=== PATIENT | female | born 1965 | race Caucasian/White ===

== ENCOUNTER 2020-04-15 12:37 | Outpatient (CLI) | payer OTHER, SELFPAY ==
--- NOTE | ~2020-04-15 | XR_ITS ---
EXAMINATION: XR lumbar spine 6V w bending DATE: 04/15/2020 13:13 INDICATION: Low back pain TECHNIQUE: Anteroposterior, lateral in neutral, flexion and extension, and bilateral oblique views of the lumbar spine, and cone-down lateral view of the lumbosacral junction were obtained. COMPARISON: CT, 05/14/2015 FINDINGS: The vertebral body heights and alignment are maintained. No laxity is present with flexion or extension. There is no fracture. Chronic mild loss of intervertebral disc space height is present at L5-S1. Small degenerative osteophytes project from the anterior endplates of multiple vertebral mauro dies. There is moderate facet osteoarthritis of the lower lumbar spine. Calcified atherosclerosis is noted. There are cholecystectomy clips in the right upper quadrant. IMPRESSION: 1. Mild lumbar spondylosis without acute findings or significant interval change. Reviewed, dictated and finalized at location A. IMPRESSION: 1. Mild lumbar spondylosis without acute findings or significant interval jose manuel serrano
--- NOTE | ~2020-04-15 | XR_ITS ---
EXAMINATION: XR sacrum coccyx min 2V INDICATION: Sacrococcygeal pain TECHNIQUE: Three views of the sacrum and coccyx are obtained. COMPARISON: None available FINDINGS: Bone alignment is normal. There is no fracture. Mild lower lumbar spondylosis is noted. The re is calcified atherosclerosis. The bowel gas pattern is normal. IMPRESSION: 1. No acute osseous abnormality. Reviewed, dictated and finalized at location A.
--- NOTE | ~2020-04-15 | XR_ITS ---
EXAMINATION: XR foot LT min 3V DATE: 04/15/2020 13:13 INDICATION: Left foot pain TECHNIQUE: Dorsoplantar, lateral, and 2 oblique views of the left foot were obtained. COMPARISON: None. FINDINGS: There is no fracture, dislocation, or subluxation. The bones, soft tissues, and joint space s are normal. IMPRESSION: 1. No acute osseous abnormality. Reviewed, dictated and finalized at location A.
== END 2020-04-15 12:38 | disposition home or self-care (01) ==
LOC: ANHIMG 12:47
PROVIDERS: PCP Family Medicine; Visit Provider Family Medicine
DX: M53.3 Sacrococcygeal disorders, not elsewhere classified (principal); M79.672 Pain in left foot; M47.816 Spondylosis without myelopathy or radiculopathy, lumbar region
CPT/HCPCS: 72114; 72220; 73630

== ENCOUNTER 2020-09-12 09:57 | Outpatient (CLI) | payer OTHER, SELFPAY | END 2020-09-12 09:58 | disposition home or self-care (01) | LOC: ANHCOVIDVC 09:57 | PROVIDERS: PCP Family Medicine | DX: Z23 Encounter for immunization (principal) | CPT/HCPCS: 0001A; 91300 ==

== ENCOUNTER 2020-10-03 10:01 | Outpatient (CLI) | payer OTHER, SELFPAY | END 2020-10-03 10:02 | disposition home or self-care (01) | LOC: ANHCOVIDVC 10:01 | PROVIDERS: PCP Family Medicine | DX: Z23 Encounter for immunization (principal) | CPT/HCPCS: 0002A; 91300 ==

== ENCOUNTER 2020-12-10 10:28 | Outpatient (CLI) | payer OTHER, SELFPAY ==
--- NOTE | ~2020-12-10 | XR_ITS ---
EXAMINATION: XR chest 2V 12/10/2020 10:45 INDICATION: Bronchitis PROCEDURE: 2 view chest COMPARISON: Comparison to multiple prior studies sequentially, with oldest reviewed study dated 01/14. FINDINGS: The lungs are clear. The cardiomediastinal silhouette is within normal limits. There are no pleural effusions. There is no pneumothorax suspected. IMPRESSION: 1: NO ACUTE CARDIOPULMONARY DISEASE. Reviewed, dictated and finalized at location B.
== END 2020-12-10 10:29 | disposition home or self-care (01) ==
PROVIDERS: PCP Family Medicine; Visit Provider Nurse Practitioner Family
DX: J40 Bronchitis, not specified as acute or chronic (principal); R05 Cough
CPT/HCPCS: 71046

== ENCOUNTER → 2021-07-08 02:42 | Outpatient (CLI) | payer OTHER, SELFPAY ==
[2021-07-08 20:49] LABS: SARS-CoV-2 RNA PCR Negative
== END ==
PROVIDERS: PCP Family Medicine; Visit Provider Nurse Practitioner Family
DX: R05.9 Cough, unspecified (principal); Z20.822 Contact with and (suspected) exposure to COVID-19
CPT/HCPCS: C9803; U0003; U0005

== ENCOUNTER 2021-08-08 17:59 | Emergency (ER) | payer OTHER, SELFPAY ==
--- NOTE | 2021-08-08 18:05 | ED.URI ---
HPI - URI/Sore Throat General Chief Complaint: Upper Respiratory Infection Stated Complaint: Swollen glands Time Seen by Provider: 08/08/21 18:08 Source: patient, RN notes reviewed and old records reviewed Mode of arrival: ambulatory Limitations: no limitations History of Present Illness HPI Narrative: 55-year-old male presents to the [facility] with complaints of swollen gland to the left side of neck, cough, left ear pain. Related Data Allergies Allergy/AdvReac Type Severity Reaction Status Date / Time diphenhydramine Allergy Unknown Unknown Verified 08/08/21 18:01 hydromorphone AdvReac Unknown N/V Verified 08/08/21 18:01 meperidine AdvReac Unknown SEVERE VO Verified 08/08/21 18:01 Review of Systems Review of Systems: All systems reviewed & are unremarkable except as noted in HPI and below Constitutional: Constitutional: Reports no additional constitutional complaints, Denies chills, Denies fever(s) and Denies headache(s) Eyes: Eyes: Reports no additional eye complaints and Denies photophobia ENT: Reports as per HPI, Denies vertigo, Denies dizziness, Denies headache(s), Reports nasal congestion and Denies sore throat Cardiovascular: Cardiovascular: Reports no additional cardiovascular complaints, Denies chest pain, Denies syncope, Denies rapid heart rate and Denies dyspnea Respiratory: Respiratory: Reports as per HPI, Reports cough, Denies dyspnea and Denies wheezing Gastrointestinal: Gastrointestinal: Reports no additional gastrointestinal complaints, Denies abdominal pain, Denies diarrhea, Denies nausea and Denies vomiting Musculoskeletal: Musculoskeletal: Reports no additional musculoskeletal complaints and Denies numbness Integumentary/Breasts: Skin/Breast: Reports system reviewed and no additional complaints, except as docu Neurologic: Reports system reviewed and no additional complaints, except as documented, Denies vertigo, Denies dizziness, Denies syncope, Denies headache(s), Denies focal weakness and Denies numbness Psychiatric: Psychiatric: Reports no additional psychiatric complaints Allergic/Immunologic: Allergic/Immunologic: Reports no additional allergic/immunologic complaints and Denies wheezing PMFSH Past Medical History Medical History Anxiety BMI 34.0-34.9,adult BMI 34.0-34.9,adult Coccygeal pain Foot pain, left Mixed hyperlipidemia Thumb pain Tobacco abuse Trigger finger (acquired) Family History Family History Grandparent Family history of malignant neoplasm of bone Family history of malignant neoplasm of urinary bladder Mother Hypertension Osteoporosis Hyperlipidemia Father , CVA Cerebrovascular accident Other Family history of alcoholism Family history of arthritis Family history of malignant neoplasm Family history of mental disorder Social History Social History Alcohol intake: never Comments At the time of my signature, I reviewed and agree with the nursing past medical, surgical, social, and family history. There is no relevant family history pertinent to the patient complaint. Exam Const: General: cooperative, healthy appearing, no acute distress, well developed and alert Nutritional Appearance: well nourished and obese Orientation/consciousness: patient oriented x3 Limitations: no limitations HENMT: Head: normal to inspection Ears: external ears normal, EAC's normal and TM abnormal with fluid behind the TM on the left; not erythematous, with no loss of landmarks and not perforated General nose exam: Abnormal mucous membranes and turbinates present boggy bilateral and erythematous bilateral Face and sinus: normal facial exam, face symmetric and sinus tenderness frontal and maxillary Mouth: Yes lip normal Eyes: Conjunctivae: conjunctivae normal Pupils: Equal, round and reactive pupils present Neck: Nec
[2021-08-08 18:09] VITALS: BP 152/78; PULSE 102; RESP 18; TEMP 37.3; O2SAT 100
== END 2021-08-08 18:28 | disposition home or self-care (01) ==
PROVIDERS: Emergency Provider Nurse Practitioner; PCP Family Medicine
DX: J01.90 Acute sinusitis, unspecified (principal); J40 Bronchitis, not specified as acute or chronic; H65.02 Acute serous otitis media, left ear; E78.2 Mixed hyperlipidemia
CPT/HCPCS: 99213; G0463

== ENCOUNTER → 2022-02-10 14:55 | Outpatient (CLI) | payer OTHER, SELFPAY ==
--- NOTE | ~2022-02-10 | XR_ITS ---
EXAM: XR hip BI wo pelvis DATE: 02/10/2022 15:12 HISTORY: M25.559 - Pain in unspecified hip . COMPARISON: X-ray sacrum and coccyx 04/15/2020. FINDINGS: Decreased mineralization. No fracture or dislocation. No lytic or blastic lesion. Degenera tive changes in the bilateral SI joints. Superior joint space narrowing in the bilateral hips. No ero sarath or periosteal change. Soft tissues within normal limits. Surgical clips over the midline pelvis. IMPRESSION: Mild bilateral hip osteoarthritis. Reviewed, dictated and finalized at location K.
--- NOTE | ~2022-02-10 | XR_ITS ---
EXAMINATION: XR chest 2V 02/10/2022 15:12 INDICATION: Cough PROCEDURE: 2 view chest COMPARISON: Comparison to multiple prior studies sequentially, with oldest reviewed study dated 10/2015. FINDINGS: The lungs are clear. The cardiomediastinal silhouette is within normal limits. There are no pleural effusions. There is no pneumothorax suspected. IMPRESSION: 1: NO ACUTE CARDIOPULMONARY DISEASE. Reviewed, dictated and finalized at location A.
--- NOTE | ~2022-02-10 | DEXA_ITS ---
Bone Density Report Name: PAIGE PERLA Age: 56 Sex: Female Ethnicity: White Date of : 1965 Indication: postmenopausal; screening for osteoporosis; height loss; Referring Provider: Yoli Johns Study: Bone densitometry was performed. Exam Date: February 10, 2022 Accession number: [id number] Bone Density: Region BMD T-score Z-score Classification AP Spine (L1-L4) 0.917 -1.2 0.1 Osteopenia Femoral Neck (Left) 0.825 -0.2 1.0 Normal Total Hip (Left) 1.167 1.8 2.7 Normal Femoral Neck (Right) 0.927 0.7 1.9 Normal Total Hip (Right) 1.110 1.4 2.2 Normal Total Hip Mean 1.139 1.6 2.5 Normal World Health Organization criteria for BMD impression classify patients as: Normal (T-score at or above -1.0), Osteopenia (T-score between -1.0 and -2.5), or Osteoporosis (T-score at or below -2.5). 10-year Fracture Risk(1): Major Osteoporotic Fracture 5.4% Hip Fracture 0.2% Reported Risk Factors: [place] (), Neck BMD=0.825, BMI=35.9, smoking (1) FRAX(R) Version 3.08. Fracture probability calculated for an untreated patient. Fracture probability may be lower if the patient has received treatment. Previous Exams: Region Exam Age BMD T-score BMD Change BMD Change Date g/cm2 vs Baseline vs Previous AP Spine(L1-L4) 02/10/2022 56 0.917 -1.2 0.036 -0.027 06/09/2018 52 0.945 -0.9 0.063 -0.052 12/02/2015 50 0.997 -0.5 0.115 0.115 11/28/2013 48 0.882 -1.5 Total Hip(Left) 02/10/2022 56 1.167 1.8 -0.138* -0.021 06/09/2018 52 1.189 2.0 -0.117 -0.043 12/02/2015 50 1.231 2.4 -0.074* -0.074* 11/28/2013 48 1.305 3.0 Total Hip(Right) 02/10/2022 56 1.110 1.4 -0.055* -0.092 06/09/2018 52 1.202 2.1 0.037 0.000 12/02/2015 50 1.202 2.1 0.037* 0.037* 11/28/2013 48 1.165 1.8 *Denotes significance at 95% confidence level, LSC for AP Spine = 0.022 g/cm2, LSC for Total Hip = 0.027 g/cm2 Clinical Information Provided by Patient: Smokes Has used the following medications: Vitamin D, Calcium Patient maximum height was 64 Menopause Age: 45 No regular weight bearing exercise Drinks caffeinated beverages Onset of menses at age 9 Number of children 1 Impression: The patient has low bone mass, based on the Total Spine T
--- NOTE | ~2022-02-10 | MM_ITS ---
EXAMINATION: MM screening [facility] BI w dorie HISTORY: Screening mammogram TECHNIQUE: Craniocaudal and mediolateral oblique 3-D tomosynthesis images were obtained and synthetic 2-D images were generated. CAD analysis was submitted and interpreted. COMPARISON: 06/09/2019, 10/22/2015 BREAST PARENCHYMAL COMPOSITION: There are scattered areas of fibroglandular density. FINDINGS: There is no suspicious mass, calcification, or architectural distortion to suggest malignan cy in either breast. There has been no suspicious interval change. IMPRESSION: 1. No mammographic evidence of malignancy. 2. Recommend routine screening mammography in one year. BI-RADS Category 1: Negative Reviewed, dictated and finalized at location A.
== END ==
PROVIDERS: PCP Family Medicine; Visit Provider Nurse Practitioner Family
DX: M81.0 Age-related osteoporosis without current pathological fracture (principal); Z72.0 Tobacco use; Z68.35 Body mass index [BMI] 35.0-35.9, adult; R79.89 Other specified abnormal findings of blood chemistry; E78.5 Hyperlipidemia, unspecified; E11.9 Type 2 diabetes mellitus without complications; M25.559 Pain in unspecified hip; Z12.39 Encounter for other screening for malignant neoplasm of breast; R05.9 Cough, unspecified; M16.0 Bilateral primary osteoarthritis of hip; M85.88 Other specified disorders of bone density and structure, other site
CPT/HCPCS: 71046; 73521; 77063; 77067; 77080

== ENCOUNTER 2023-06-01 12:58 | Outpatient (CLI) | payer OTHER, SELFPAY ==
--- NOTE | ~2023-06-01 | CT_ITS ---
EXAMINATION: CT lung screening DATE: 06/01/2023 13:19 INDICATION: Personal history of nicotine dependence TECHNIQUE: Computed tomography (CT) of the chest was performed without intravenous contrast. The dose -length product was 207.29 mGy-cm. Automated exposure control and iterative reconstruction technique were employed. COMPARISON: Chest x-ray dated 02/10/2022 FINDINGS: No thoracic lymphadenopathy. Heart size normal. No significant pleural or pericardial effus ion. Status post cholecystectomy. There is atherosclerosis of the aorta and coronary arteries. There is emphysema. No endobronchial lesions. No focal airspace consolidation. No pneumothorax. No suspicio us pulmonary nodules or masses. No acute osseous abnormality. IMPRESSION: 1. Lung-RADS category 1: Negative. Continue annual screening with noncontrast low-dose chest CT in 12 months. Reviewed, dictated and finalized at location B. 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 Lung-RADS category 1: Negative. Continue annual screening with noncontrast l ow-dose chest CT in 12 months.
== END 2023-06-01 12:59 | disposition home or self-care (01) ==
PROVIDERS: PCP Family Medicine; Visit Provider Nurse Practitioner Family
DX: Z12.2 Encounter for screening for malignant neoplasm of respiratory organs (principal); Z87.891 Personal history of nicotine dependence
CPT/HCPCS: 71271

== ENCOUNTER 2023-06-30 16:03 | Emergency (ER) | payer OTHER, SELFPAY ==
[2023-06-30 16:23] VITALS: BP 135/73; PULSE 79; RESP 20; TEMP 36.9; O2SAT 96
--- NOTE | 2023-06-30 17:53 | ED.URI ---
HPI - URI/Sore Throat General Chief Complaint: Upper Respiratory Infection Stated Complaint: Sinus/SOB Time Seen by Provider: 06/30/23 17:54 Source: patient, RN notes reviewed and old records reviewed Mode of arrival: ambulatory Limitations: no limitations History of Present Illness HPI Narrative: 57-year-old female presents to the [facility] with complaints of cough and shortness of breath since either Tuesday or Tuesday. Patient is a smoker, smokes 1 pack a day since age 13 Chest chest pain Onset (ago): day(s) (-) Related Data Home Medications Medication Instructions Recorded Confirmed ascorbic acid (vitamin C) 1,000 mg 1 g PO BID 03/18/22 06/30/23 capsule Allergies Allergy/AdvReac Type Severity Reaction Status Date / Time No Known Allergies Allergy Verified 06/30/23 16:33 Review of Systems Review of Systems: All systems reviewed & are unremarkable except as noted in HPI and below Constitutional: Constitutional: Reports no additional constitutional complaints Eyes: Eyes: Reports no additional eye complaints ENT: Reports system reviewed and no additional complaints, except as documented Cardiovascular: Cardiovascular: Reports no additional cardiovascular complaints, Denies chest pain and Denies dyspnea Respiratory: Respiratory: Reports as per HPI, Denies chest congestion, Denies cough, Reports dyspnea and Reports wheezing Gastrointestinal: Gastrointestinal: Reports no additional gastrointestinal complaints, Denies abdominal pain, Denies nausea and Denies vomiting Musculoskeletal: Musculoskeletal: Reports no additional musculoskeletal complaints Integumentary/Breasts: Skin/Breast: Reports system reviewed and no additional complaints, except as docu Neurologic: Reports system reviewed and no additional complaints, except as documented Psychiatric: Psychiatric: Reports no additional psychiatric complaints Allergic/Immunologic: Allergic/Immunologic: Reports no additional allergic/immunologic complaints [facility] Past Medical History Medical History Anxiety Arthritis BMI 34.0-34.9,adult BMI 34.0-34.9,adult BMI 36.0-36.9,adult BMI 37.0-37.9, adult BMI over 35 Coccygeal pain COVID Epidermoid cyst of skin of chest Foot pain, left IBS (irritable bowel syndrome) Mixed hyperlipidemia Skin lesion of right leg Thumb pain Tobacco abuse Trigger finger (acquired) Surgical History Surgical History History of cholecystectomy History of elective x2 Hx of elbow surgery Hx of release of tendon S/P left knee surgery [place] teeth removed Family History Family History Grandparent Family history of malignant neoplasm of bone Family history of malignant neoplasm of urinary bladder Mother Hypertension Osteoporosis Hyperlipidemia Father , CVA Cerebrovascular accident Lung cancer Sibling Hyperlipidemia Other Family history of alcoholism Family history of arthritis Family history of malignant neoplasm Family history of mental disorder Social History Social History Smoking status: Current every day smoker Tobacco type: cigarettes Second hand tobacco smoke exposure: Yes Alcohol intake: never Substance use: former Substance use type: marijuana Lack of Transportation: No Lack of Food: Never True Current Housing: I Have Housing Concerned About Future Housing: No Difficulty Paying Gas/Electric Bills: YES Difficulty Paying for Meds: YES Currently Unemployed: YES Education: Bachelor's Degree Difficulty w/ Childcare or Family Care: No Living arrangements: with family Occupation/Education: unemployed 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 Gender identity (if verbalized by th
== END 2023-06-30 18:13 | disposition home or self-care (01) ==
PROVIDERS: Emergency Provider Nurse Practitioner; PCP Family Medicine
DX: J20.9 Acute bronchitis, unspecified (principal); E78.2 Mixed hyperlipidemia; F17.210 Nicotine dependence, cigarettes, uncomplicated; Z20.822 Contact with and (suspected) exposure to COVID-19
CPT/HCPCS: 87426; 87804; 99213; C9803; G0463

== ENCOUNTER 2023-08-03 10:04 | Outpatient (CLI) | payer OTHER, SELFPAY ==
--- NOTE | ~2023-08-03 | MM_ITS ---
EXAMINATION: MM screening [facility] BI w dorie HISTORY: Screening TECHNIQUE: Craniocaudal and mediolateral oblique 3-D tomosynthesis images were obtained and synthetic 2-D images were generated. CAD analysis was submitted and interpreted. COMPARISON: No prior mammogram is available for comparison at this institution. BREAST PARENCHYMAL COMPOSITION: Breast composed of scattered areas of fibroglandular density FINDINGS: There is a mass in the right axilla which has an atypical appearance for lymph node. No [facility] mographic evidence for malignancy in the left breast. IMPRESSION: 1. Abnormal right axillary mass. 2. Additional spot compression and mediolateral views with possible follow-up breast ultrasound recom mended. BI-RADS Category 0: Incomplete: Needs additional imaging evaluation. Reviewed, dictated and finalized at location A. 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 Abnormal right axillary mass. 2. Additional spot compression and mediolateral views with possible follow-up b reast ultrasound recommended. BI-RADS Category 0: Incomplete: Needs additional imaging evaluation.
== END 2023-08-03 10:05 | disposition home or self-care (01) ==
LOC: ANHIMG 10:09
PROVIDERS: PCP Family Medicine; Visit Provider Obstetrics & Gynecology
DX: Z12.31 Encounter for screening mammogram for malignant neoplasm of breast (principal); R92.8 Other abnormal and inconclusive findings on diagnostic imaging of breast
CPT/HCPCS: 77063; 77067

== ENCOUNTER 2023-08-30 11:20 | Outpatient (CLI) | payer OTHER, SELFPAY ==
--- NOTE | ~2023-08-30 | MMUS_ITS ---
EXAMINATION: MM diagnostic [facility] RT w dorie, US breast RT limited HISTORY: Follow-up right axillary mass TECHNIQUE: Additional 3-D tomosynthesis images of the right breast were performed and synthetic 2-D i mages were generated. CAD analysis was submitted and interpreted. High resolution Limited right breas t ultrasound was performed. COMPARISON: Comparison to multiple prior studies sequentially, with oldest reviewed study dated 10/18. BREAST PARENCHYMAL COMPOSITION: Not dense: There are scattered areas of fibroglandular density. FINDINGS: MAMMOGRAPHIC FINDINGS: The mass in the right axilla overlies the pectoralis muscle on the medial lateral view. There is cent ral lucency with spot compression views, compatible with lymph node. There are no suspicious masses, calcifications or architectural distortion. ULTRASOUND: Limited right breast ultrasound: At 9:00, 5 cm from the nipple, there is an oval hypoechoic mass with echogenic focus internally. No internal vascularity. There is parallel orientation and no posterior features. This mass measures 5 mm. At 12:00 near the nipple is an oval solid hypoechoic 7 mm mass wit h circumscribed margins, no internal vascularity and no posterior features, likely benign. At 11:00, 12 cm from the nipple there is a normal-appearing 12 mm lymph node. Additional normal lymph nodes are present in the right axilla. IMPRESSION: 1. Likely benign right breast masses located at 9:00 5 cm from the nipple and 12:00 near the nipple. 2. Recommend 6 month follow-up Limited right breast ultrasound BI-RADS category 3, probably benign findings. Reviewed, dictated and finalized at location A. 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 Likely benign right breast masses located at 9:00 5 cm from the nipple and 1 2:00 near the nipple. 2. Recommend 6 month follow-up Limited right breast ultrasound BI-RADS category 3, probably benign findings.
== END 2023-08-30 11:21 | disposition home or self-care (01) ==
PROVIDERS: PCP Family Medicine; Visit Provider Obstetrics & Gynecology
DX: R92.8 Other abnormal and inconclusive findings on diagnostic imaging of breast (principal)
CPT/HCPCS: 76642; 77061; 77065; G0279

== ENCOUNTER 2024-03-23 09:11 | Emergency (ER) | payer OTHER, SELFPAY ==
[2024-03-23 09:21] VITALS: BP 138/78; PULSE 92; RESP 16; TEMP 37.6; O2SAT 97
[2024-03-23 09:24] VITALS: BP 138/78; PULSE 92; RESP 16; TEMP 37.6; O2SAT 97
--- NOTE | 2024-03-23 09:31 | ED.URI ---
HPI - URI/Sore Throat General Chief Complaint: Upper Respiratory Infection Stated Complaint: Sinus/Cough Time Seen by Provider: 03/23/24 09:31 Source: patient Mode of arrival: ambulatory Limitations: no limitations History of Present Illness HPI Narrative: 58-year-old female presents with complaint cough, chest congestion, fatigue for 1 week. Reports low-grade fever yesterday and today. History of asthma. Has been using inhaler more than usual. Also current everyday smoker. Taking sveu-[id number] Mucinex to treat symptoms. All systems reviewed and negative except as noted above. Related Data Home Medications Medication Instructions Recorded Confirmed ascorbic acid (vitamin C) 1,000 mg 1 g PO BID 03/18/22 03/23/24 capsule Allergies Allergy/AdvReac Type Severity Reaction Status Date / Time No Known Allergies Allergy Verified 03/23/24 09:22 Review of Systems Review of Systems: CONSTITUTIONAL: Reports fever. Denies chills, or sweats. EYES: Denies visual changes, redness, or discharge. ENT: reports rhinorrhea, congestion. Denies sore throat, or otalgia. CARDIOVASCULAR: Denies chest pain, palpitations, or edema. RESPIRATORY: reports cough. Denies dyspnea. GASTROINTESTINAL: Denies abdominal pain, nausea, vomiting, or diarrhea. GENITOURINARY: Denies dysuria or hematuria. SKIN: Denies rash or itching. MUSCULOSKELETAL: Denies back pain, joint pain, or myalgia. NEUROLOGIC: Denies headache, numbness, or weakness. PSYCHIATRIC: Denies anxiety or depression. All other systems reviewed are negative, except as documented in HPI. [facility] Past Medical History Medical History (Updated 03/23/24 @ 09:39 by Yoli Little NP) Anxiety Arthritis BMI 32.0-32.9,adult BMI 34.0-34.9,adult BMI 34.0-34.9,adult BMI 36.0-36.9,adult BMI 37.0-37.9, adult BMI over 35 Coccygeal pain COVID Epidermoid cyst of skin of chest Foot pain, left IBS (irritable bowel syndrome) Mixed hyperlipidemia Skin lesion of right leg Thumb pain Tobacco abuse Trigger finger (acquired) Surgical History Surgical History History of cholecystectomy History of elective x2 Hx of elbow surgery Hx of release of tendon S/P left knee surgery [place] teeth removed Family History Family History Grandparent Family history of malignant neoplasm of bone Family history of malignant neoplasm of urinary bladder Mother Hypertension Osteoporosis Hyperlipidemia Father , CVA Cerebrovascular accident Lung cancer Sibling Hyperlipidemia Depression Other Family history of alcoholism Family history of arthritis Family history of malignant neoplasm Family history of mental disorder Social History Social History Smoking status: Current every day smoker Tobacco type: cigarettes Second hand tobacco smoke exposure: Yes Alcohol intake: never Substance use: former Substance use type: does not use and marijuana Do You Feel Safe in your Home?: Yes Lack of Transportation: No Lack of Food: Never True Current Housing: I Have Housing Concerned About Future Housing: No Difficulty Paying Gas/Electric Bills: YES Difficulty Paying for Meds: YES Currently Unemployed: YES Education: Bachelor's Degree Difficulty w/ Childcare or Family Care: No Living arrangements: with family Occupation/Education: unemployed 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 There is no relevant family history pertinent to the presenting complaint. Exam Narrative: GE
== END 2024-03-23 09:48 | disposition home or self-care (01) ==
PROVIDERS: Emergency Provider Nurse Practitioner Family; PCP Family Medicine
DX: J20.9 Acute bronchitis, unspecified (principal); J45.901 Unspecified asthma with (acute) exacerbation; F17.210 Nicotine dependence, cigarettes, uncomplicated; M19.90 Unspecified osteoarthritis, unspecified site; E78.2 Mixed hyperlipidemia; Z86.16 Personal history of COVID-19
CPT/HCPCS: 99213; G0463

== ENCOUNTER 2024-04-03 11:21 | Outpatient (CLI) | payer OTHER, SELFPAY ==
--- NOTE | ~2024-04-03 | XR_ITS ---
Clinical Indication: Bronchitis PA and lateral views of the chest: Comparison: 02/10/2022 Findings: Questionable minimal haziness in the lingula. Right lung clear. Cardiomediastinal silhouet te is within normal limits. Bones and soft tissues are unremarkable. Impression: Questionable subtle/patchy lingular pneumonia. Reviewed, dictated and finalized at [facility]. Impression: Questionable subtle/patchy lingular pneumonia.
== END 2024-04-03 11:22 | disposition home or self-care (01) ==
LOC: ANHIMG 11:24
PROVIDERS: PCP Family Medicine; Visit Provider Nurse Practitioner Family
DX: J20.9 Acute bronchitis, unspecified (principal)
CPT/HCPCS: 71046

== ENCOUNTER 2024-05-23 11:08 | Outpatient (CLI) | payer OTHER, SELFPAY ==
--- NOTE | ~2024-05-23 | MMUS_ITS ---
EXAMINATION: MM diagnostic [facility] RT w dorie, US breast RT limited HISTORY: Six-month follow-up of right breast TECHNIQUE: 3-D tomosynthesis images of the right breast were performed and synthetic 2-D images were generated. CAD analysis was submitted and interpreted. High resolution limited right breast ultrasoun d was performed. COMPARISON: 08/30/2023, 08/03/2023, 02/10/2022 BREAST PARENCHYMAL COMPOSITION:Not Dense. There are scattered areas of fibroglandular density. FINDINGS: MAMMOGRAPHIC FINDINGS: Parenchymal pattern of the right breast is unchanged. No suspicious mass lesion or distortion. Stable lymph node at the axillary tail of the right breast. ULTRASOUND: Stable 5 mm hypoechoic mass at the 9:00 position right breast, 5 cm from the nipple. Stable benign ly mph node at the 11:00 position right breast, 12 cm from the nipple. Stable 7 mm hypoechoic parallel c ircumscribed homogeneous mass at the 12:00 position right breast, near the nipple. IMPRESSION: No evidence for malignancy. Stable subcentimeter benign-appearing right breast masses, as above. Stable benign-appearing right ax illary lymph node. BI-RADS Category 2: Benign finding(s). Reviewed, dictated and finalized at location M. P IMPRESSION: No evidence for malignancy. Stable subcentimeter benign-appearing right breast masses, as above. Stable kaleigh ign-appearing right axillary lymph node. BI-RADS Category 2: Benign finding(s).
== END 2024-05-23 11:09 | disposition home or self-care (01) ==
LOC: ANHIMG 11:09
PROVIDERS: PCP Family Medicine; Visit Provider Obstetrics & Gynecology
DX: R92.8 Other abnormal and inconclusive findings on diagnostic imaging of breast (principal)
CPT/HCPCS: 76642; 77061; 77065; G0279

== ENCOUNTER 2024-05-25 23:16 | Emergency (ER) | payer OTHER, SELFPAY ==
[2024-05-25 23:30] VITALS: BP 131/65; PULSE 77; RESP 18; TEMP 36.4; O2SAT 99
[2024-05-26 02:47] LABS: Basophils Absolute Auto 0.1 K/mm3 (0.0-0.1); Basophils Percent Auto 0.4 % (0.2-1.2); Eosinophils Absolute Auto 0.2 K/mm3 (0-0.3); Eosinophils Percent Auto 1.6 % (0-4.4); Hematocrit 44.5 % (37.0-47.0); Hemoglobin 14.9 g/dL (12.0-15.0); Immature Granulocyte Absolute 0.06 K/mm3 (0.00-0.031); Immature Granulocyte Percent A 0.4 % (0-0.5); Lymphocytes Absolute Auto 4.04 K/mm3 (0.9-3.2); Lymphocytes Percent Auto 27.5 % (18.3-44.2); Mean Corpuscular HGB Conc 33.5 g/dl (32-36); Mean Corpuscular Hemoglobin 29.5 pg (26-34); Mean Corpuscular Volume 88.1 fl (80-100); Mean Platelet Volume 10.2 fl (7.4-10.4); Monocytes Absolute Auto 1.3 K/mm3 (0.1-0.6); Monocytes Percent Auto 8.6 % (2.6-8.5); Neutrophils Percent Auto 61.5 % (45.5-73.1); Platelet Count Result 272 k/mm3 (150-375); Red Blood Count 5.05 M/mm3 (4.2-5.4); Red Cell Distribution Width 14.1 % (11.5-14.5); White Blood Count 14.7 K/mm3 (4.5-10.0)
[2024-05-26 02:48] VITALS: BP 105/74; PULSE 87; RESP 16; O2SAT 97
[2024-05-26 02:56] LABS: Alanine Aminotransferase 31 U/L (6-35); Albumin Level 4.2 g/dL (3.5-5.1); Alkaline Phosphatase 124 U/L (38-126); Anion Gap 5 mmol/L (4-12); Aspartate Amino Transferase 30 U/L (14-36); Bilirubin,Total 0.4 mg/dL (0.2-1.3); Blood Urea Nitrogen 11 mg/dL (7-17); Calcium 9.1 mg/dL (8.4-10.2); Carbon Dioxide 26 mmol/L (22-30); Chloride 106 mmol/L (98-107); Estimated CRCL calculation 84 ml/min; Estimated Glomerular Filt Rate > 60; Glucose 120 mg/dL (65-110); Potassium 3.9 mmol/L (3.4-5.0); Sodium 137 mmol/L (137-145)
[2024-05-26 03:23] LABS: Influenza A QL RT-PCR Negative (Negative); Influenza B QL RT-PCR Negative (Negative); RSV RNA, RT-PCR Negative (Negative); SARS-CoV-2 RNA PCR Negative (Negative)
[2024-05-26] MEDS: AMOXICILLIN/CLAVULANATE K 875-125 MG TAB 1 TABLET PO (03:36)
[2024-05-26] MEDS: MECLIZINE HCL 25 MG TABLET PO (03:36)
--- NOTE | 2024-05-26 03:55 | ED_ITS ---
HPI - General Adult General Chief complaint: Unspecified Stated complaint: diarrhea, dizziness, URI, I think I have sepsis Time Seen by Provider: 05/26/24 02:45 History of Present Illness HPI narrative: 58-year-old female presenting to the emergency department chief complaint of right-sided sinus pressure, right-sided pain in the head, vertiginous symptoms without nausea or vomiting. She states that she been having some purulent drainage from her right nostril. States it feels like a sinus infection. Was previously on antibiotics recently about 1 month prior for pneumonia but complete this course and has resolution of her lower respiratory symptoms. No cough or productive cough. Presently she states that she has been having some fullness in her right-sided facial area near her sinuses and this is causing her to have some balance concerns and dizziness presently. No ear pain or drainage. No headache or vision changes. Was otherwise in her normal state of health. Denies any trauma, not on any blood thinner medications. Related Data Home Medications Medication Instructions Recorded Confirmed ascorbic acid (vitamin C) 1,000 mg 1 g PO BID 03/18/22 05/23/24 capsule Allergies Allergy/AdvReac Type Severity Reaction Status Date / Time No Known Allergies Allergy Verified 05/25/24 23:17 Review of Systems Review of Systems: As reviewed above in HPI [facility] Past Medical History Medical History Anxiety Arthritis BMI 32.0-32.9,adult BMI 34.0-34.9,adult BMI 34.0-34.9,adult BMI 36.0-36.9,adult BMI 37.0-37.9, adult BMI over 35 Coccygeal pain COVID Epidermoid cyst of skin of chest Foot pain, left IBS (irritable bowel syndrome) Mixed hyperlipidemia Skin lesion of right leg Thumb pain Tobacco abuse Trigger finger (acquired) Surgical History Surgical History History of cholecystectomy History of elective x2 Hx of elbow surgery Hx of release of tendon S/P left knee surgery [place] teeth removed Family History Family History Grandparent Family history of malignant neoplasm of bone Family history of malignant neoplasm of urinary bladder Mother Hypertension Osteoporosis Hyperlipidemia Father , CVA Cerebrovascular accident Lung cancer Sibling Hyperlipidemia Depression Other Family history of alcoholism Family history of arthritis Family history of malignant neoplasm Family history of mental disorder Social History Social History Smoking status: Current every day smoker Tobacco type: cigarettes Second hand tobacco smoke exposure: Yes Alcohol intake: never Substance use: former Substance use type: does not use and marijuana Do You Feel Safe in your Home?: Yes Lack of Transportation: No Lack of Food: Never True Current Housing: I Have Housing Concerned About Future Housing: No Difficulty Paying Gas/Electric Bills: YES Difficulty Paying for Meds: YES Currently Unemployed: YES Education: Bachelor's Degree Difficulty w/ Childcare or Family Care: No Living arrangements: with family Occupation/Education: unemployed 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 Gender identity (if verbalized by the patient): Female Sexual Orientation (if Verbalized by the Patient): Straight or Heterosexual Exam Narrative: GENERAL: [Well-appearing, well-nourished, and in no acute distress.] HEAD: [Normocephalic, atraumatic.] EYES: [PERRLA and EOMI.] ENT: the bilateral nares have some thick mucus more so on the right side, no turbinate inflammation or erythema or septal deviation. Some tenderness with pa lpation of the maxillary sinus on the right side, no otitis. Poor dentition but no periapical abscess or gingival infection evident, no tenderness to palpation of the upper maxillary molars and premolars On the right side NECK: Supple. CHEST: [Clear to auscultation. No respiratory distress.] HEART: [Regular rate and rhythm]. No murmur heard. [Normal peripheral pulses.] ABDOMEN: [Soft, nondistended], [nontender], [No rigidity or guarding] EXTREMITIES: Normal range of motion. [No edema.] SKIN: Warm, dry, no rash. NEURO: [No focal deficits]. Alert and oriented [x3.] PSYCH: [Normal mood and affect.] Course Vital Signs Vital signs: Vital Signs Temperature 36.4 C 05/25/24 23:30 Pulse Rate 77 05/25/24 23:30 Respiratory Rate 18 05/25/24 23:30 Blood Pressure 131/65 05/25/24 23:30 Pulse Oximetry 99 05/25/24 23:30 Oxygen Delivery Room Air 05/25/24 23:30 Temperature 36.4 C 05/25/24 23:30 Pulse Rate 87 05/26/24 02:48 Respiratory Rate 16 05/26/24 02:48 Blood Pressure 105/74 05/26/24 02:48 Pulse Oximetry 97 05/26/24 02:48 Oxygen Delivery Room Air 05/25/24 23:30 Medical Decision Making MDM Narrative Medical decision making narrative: 58-year-old female presenting with right-sided facial pain and sinus pressure sensation. She has been blowing her nose and having thick yellow mucus as well as pain in the right side of her face and maxillary structures. She endorses some vertiginous sensations especially when she gets up. Given the unilateral symptoms on the right side consistent with sinusitis this is likely causing some eustachian tube dysfunction given the proximity and causing her vertiginous symptoms. She was provide meclizine with improvement her symptoms while here in the emergency department. Laboratory studies were obtained and do show a good leukocytosis of 14.7 consistent with potential infectious process. CBC otherwise unremarkable, electrolytes within normal limits, normal renal function panel. Normal hepatic function panel. Differential diagnosis includes viral versus bacterial sinusitis, eustachian tube dysfunction, less likely dental p rocess. No suspicion presently for intra cranial process causing her vertiginous symptoms. Given her reported purulent sinus drainage and leukocytosis consistent with potential sinusitis possibly bacterial versus viral, I believe she would benefit from antibiotics at this time. She did have improvement with meclizine here in the emergency department and we gave her dose of Augmentin for treatment of her infection. She will be sent home with prescriptions for both encouraged to follow-up with her primary care provider outpatient. She verbalized understanding of these instructions and safely discharged home at this time. Medical Records Medical records reviewed: Yes I reviewed the external patient's medical records. Vital Signs Vital Signs: Vital Signs Temperature 36.4 C 05/25/24 23:30 Pulse Rate 77 05/25/24 23:30 Respiratory Rate 18 05/25/24 23:30 Blood Pressure 131/65 05/25/24 23:30 Pulse Oximetry 99 05/25/24 23:30 Oxygen Delivery Room Air 05/25/24 23:30 Temperature 36.4 C 05/25/24 23:30 Pulse Rate 87 05/26/24 02:48 Respiratory Rate 16 05/26/24 02:48 Blood Pressure 105/74 05/26/24 02:48 Pulse Oximetry 97 05/26/24 02:48 Oxygen Delivery Room Air 05/25/24 23:30 Lab Data Lab results reviewed: Yes I reviewed the patient's lab results. 05/26/24 02:43 05/26/24 02:43 Labs: Lab Results 05/26/24 05/26/24 Range/Units 02:42 02:43 WBC 14.7 H (4.5-10.0) K/mm3 RBC 5.05 (4.2-5.4) M/mm3 Hgb 14.9 (12.0-15.0) g/dL Hct 44.5 (37.0-47.0) % MCV 88.1 (80-100) fl MCH 29.5 (26-34) pg MCHC 33.5 (32-36) g/dl RDW 14.1 (11.5-14.5) % Plt Count 272 (150-375) k/mm3 MPV 10.2 (7.4-10.4) fl Immature Gran % (Auto) 0.4 (0-0.5) % Neut % (Auto) 61.5 (45.5-73.1) % Lymph % (Auto) 27.5 (18.3-44.2) % [place] % (Auto) 8.6 H (2.6-8.5) % Eos % (Auto) 1.6 (0-4.4) % Baso % (Auto) 0.4 (0.2-1.2) % Lymph # (Auto) 4.04 H (0.9-3.2) K/mm3 [place] # (Auto) 1.3 H (0.1-0.6) K/mm3 Eos # (Auto) 0.2 (0-0.3) K/mm3 Baso # (Auto) 0.1 (0.0-0.1) K/mm3 Abs Immat Gran (auto) 0.06 H (0.00-0.031) K/mm3 Absolute Neuts (auto) 9.0 H (1.3-6.7) K/mm3 Absolute Nucleated RBC 0.000 (0.0-0.012) K/mm3 Nucleated RBC % 0.0 (0.0-0.2) % Sodium 137 (137-145) mmol/L Potassium 3.9 (3.4-5.0) mmol/L Chloride 106 (98-107) mmol/L Carbon Dioxide 26 (22-30) mmol/L Anion Gap 5 (4-12) mmol/L BUN 11 (7-17) mg/dL Creatinine 0.60 L (0.7-1.0) mg/dL Estim Creat Clear Calc 84 ml/min Estimated GFR > 60 (59 - ) Glucose 120 H (65-110) mg/dL Calcium 9.1 (8.4-10.2) mg/dL Total Bilirubin 0.4 (0.2-1.3) mg/dL AST 30 (14-36) U/L ALT 31 (6-35) U/L Alkaline Phosphatase 124 (38-126) U/L Total Protein 8.0 (6.3-8.2) g/dL Albumin 4.2 (3.5-5.1) g/dL Influenza A (RT-PCR) Negative (Negative) Influenza B (RT-PCR) Negative (Negative) RSV (RT-PCR) Negative (Negative) SARS-CoV-2 RNA (RT-PCR) Negative (Negative) Discharge Plan Discharge Clinical Impression: Sinusitis, Vertigo Patient Disposition: Home, Self-Care Condition: Stable Instructions: Antibiotic Form, Sinusitis (ED), Vertigo (DC) Additional Instructions: given your elevated white count and sinus drainage, we will treat you for a sinusitis infection at this time. This is likely also causing your vertigo sensation given the right-sided symptoms and proximity to the eustachian tube which can cause dizziness sensations especially when inflammation is nearby. we will prescribe the antibiotics for the next several days as well as medications as needed for any vertiginous symptoms. Return at any point with any new or worsening concerns but please follow-up with your primary care provider outpatient. Prescriptions: New meclizine 25 mg tablet 25 mg PO TID PRN (Reason: dizziness) 10 Days Qty: 30 0RF amoxicillin-pot clavulanate 875-125 mg tablet 1 tablet PO Q12H 7 Days Qty: 14 0RF No Action albuterol sulfate 90 mcg/actuation HFA aerosol inhaler 2 puff inhalation Q4-6H PRN (Reason: shortness of breath or wheezing) Qty: 8.5 0RF alprazolam [Xanax] 0.5 mg tablet 0.5 mg PO QHS PRN (Reason: anxiety) Qty: 90 0RF ascorbic acid (vitamin C) 1,000 mg capsule 1 g PO BID meloxicam 15 mg tablet 15 mg PO DAILY Qty: 30 0RF cyclobenzaprine 10 mg tablet 10 mg PO TID PRN (Reason: muscle spasm) Qty: 30 0RF Follow-up/Referrals: Moe Dave MD [Primary Care Provider] -
== END 2024-05-26 04:24 | disposition home or self-care (01) ==
PROVIDERS: Emergency Provider Student in an Organized Health Care Education/Training Program; PCP Family Medicine
DX: J32.9 Chronic sinusitis, unspecified (principal); R42 Dizziness and giddiness; Z20.822 Contact with and (suspected) exposure to COVID-19; E78.2 Mixed hyperlipidemia; K58.9 Irritable bowel syndrome, unspecified; M19.90 Unspecified osteoarthritis, unspecified site; F41.9 Anxiety disorder, unspecified; F17.210 Nicotine dependence, cigarettes, uncomplicated; Z86.16 Personal history of COVID-19; Z90.49 Acquired absence of other specified parts of digestive tract
CPT/HCPCS: 36415; 80053; 85025; 87637; 99283; A9270

== ENCOUNTER 2024-06-29 14:52 | Outpatient (CLI) | payer OTHER, SELFPAY ==
--- NOTE | ~2024-06-29 | CT_ITS ---
EXAMINATION: CT lung screening DATE: 06/29/2024 15:08 INDICATION: Z87.891 - Personal history of nicotine dependence TECHNIQUE: Computed tomography (CT) of the chest was performed without intravenous contrast. Addition al 3D reconstructions utilizing coronal maximum intensity projection (MIP) were performed. Automated exposure control and iterative reconstruction technique were employed. The dose-length product was 14 1.95 mGy-cm. COMPARISON: None FINDINGS: Mild emphysema. No pulmonary nodules, pneumonia, pulmonary edema or pleural effusion. Heart size norm al. No pericardial effusion. Thoracic aorta is normal in caliber. No pathologically enlarged thoracic lymphadenopathy. Diffuse hepatic steatosis. Cholecystectomy clips the gallbladder fossa. Mild thorac ic spondylosis. IMPRESSION: 1. Lung-RADS category 1: Negative. Continue annual screening with noncontrast low-dose chest CT in 12 months. Reviewed, dictated and finalized at location A. [facility] IMPRESSION: 1. Lung-RADS category 1: Negative. Continue annual screening with noncontrast l ow-dose chest CT in 12 months.
== END 2024-06-29 14:53 | disposition home or self-care (01) ==
PROVIDERS: PCP Family Medicine; Visit Provider Nurse Practitioner Obstetrics & Gynecology
DX: Z12.2 Encounter for screening for malignant neoplasm of respiratory organs (principal); Z87.891 Personal history of nicotine dependence; J43.9 Emphysema, unspecified
CPT/HCPCS: 71271

== ENCOUNTER 2024-07-02 10:45 | Emergency (ER) | payer OTHER, SELFPAY ==
--- NOTE | ~2024-07-02 | XR_ITS ---
HISTORY: pain and swelling left knee no injury. COMPARISON: None TECHNIQUE: 4 views of the left knee were performed FINDINGS: No acute or subacute fracture. Medial tibiofemoral joint space narrowing is identified with osteophyte formation and tibial plateau sclerosis. No suprapatellar joint effusion is identified. The infrapatellar joint space is clear. IMPRESSION: Significant degenerative disease with joint space narrowing and osteophyte formation. No acute fractu re. Reviewed, dictated and finalized at location [facility]. [facility] IMPRESSION: Significant degenerative disease with joint space narrowing and osteophyte form ation. No acute fracture.
[2024-07-02 10:50] VITALS: BP 140/75; PULSE 90; RESP 16; TEMP 37.1; O2SAT 98
--- NOTE | 2024-07-02 11:40 | ED_ITS ---
HPI - Extremity Problem General Chief complaint: Extremity Problem,Nontraumatic Stated complaint: Left Knee Pain Time Seen by Provider: 07/02/24 11:41 Source: patient, RN notes reviewed and old records reviewed Mode of arrival: ambulatory Limitations: no limitations History of Present Illness HPI Narrative: Patient presents with complaints of left knee pain that has been present for 2-3 days. She denies any injury or trauma. She reports pain is worse with weight- bearing and when going up stairs. She reports swelling. She has been icing the affected area as much as practical. She has not been taking any medications for her symptoms. She voices no other concerns or complaints at this time. Related Data Allergies Allergy/AdvReac Type Severity Reaction Status Date / Time diphenhydramine (From AdvReac Intermediate Agitated Verified 07/02/24 11:12 Benadryl) Review of Systems Review of Systems: All systems reviewed & are unremarkable except as noted in HPI and below Constitutional: Constitutional: Reports no additional constitutional complaints ENT: Reports system reviewed and no additional complaints, except as documented Cardiovascular: Cardiovascular: Reports no additional cardiovascular complaints Respiratory: Respiratory: Reports no additional respiratory complaints Gastrointestinal: Gastrointestinal: Reports no additional gastrointestinal complaints Musculoskeletal: Musculoskeletal: Reports no additional musculoskeletal complaints and Reports as per HPI [facility] Past Medical History Medical History BMI 32.0-32.9,adult Skin lesion of right leg Epidermoid cyst of skin of chest BMI 37.0-37.9, adult BMI 36.0-36.9,adult IBS (irritable bowel syndrome) Arthritis COVID BMI over 35 BMI 34.0-34.9,adult Tobacco abuse Thumb pain Trigger finger (acquired) Anxiety Foot pain, left Mixed hyperlipidemia Coccygeal pain BMI 34.0-34.9,adult Surgical History Surgical History S/P left knee surgery Hx of elbow surgery [place] teeth removed History of cholecystectomy History of elective x2 Hx of release of tendon Family History Family History Grandparent Family history of malignant neoplasm of bone Family history of malignant neoplasm of urinary bladder Mother Hypertension Osteoporosis Hyperlipidemia Father , CVA Cerebrovascular accident Lung cancer Sibling Hyperlipidemia Depression Other Family history of alcoholism Family history of arthritis Family history of malignant neoplasm Family history of mental disorder Social History Social History Smoking status: Current every day smoker Tobacco type: cigarettes Second hand tobacco smoke exposure: Yes Alcohol intake: never Substance use: former Substance use type: does not use and marijuana Do You Feel Safe in your Home?: Yes Lack of Transportation: No Lack of Food: Never True Current Housing: I Have Housing Concerned About Future Housing: No Difficulty Paying Gas/Electric Bills: YES Difficulty Paying for Meds: YES Currently Unemployed: YES Education: Bachelor's Degree Difficulty w/ Childcare or Family Care: No Living arrangements: with family Occupation/Education: unemployed 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 Gender identity (if verbalized by the patient): Female Sexual Orientation (if Verbalized by the Patient): Straight or Heterosexual Comments At the time of my signature, I reviewed and agree with the nursing past medical, surgical, social, and family history. There is no relevant family history pertinent to the patient complaint. Exam Const: General: cooperative, no acute distress, alert and awake Orientation/consciousness: oriented to person, oriented to place and oriented to time HENMT: Head: normal to inspection Resp: Effort & Inspection: normal respiratory effort and able to speak in complete sentences Auscultation: clear to auscultation bilaterally, no crackles, no rales, no rhonchi and no wheezes Cardio: Palpation: normal PMI Rate: regular rate Rhythm: regular rhythm Heart sounds: S1 normal heart sound present and S2 normal heart sound present Neuro: General: oriented to person, oriented to place and oriented to time Cranial nerves: Yes CN's II-XII intact bilaterally Extrem: Left lower extremity: knee Details: tenderness Location: of the lateral joint line, swelling and normal ROM; no deformity and no unusual warmth Psych: Appearance: grossly normal Thought process: Normal thought process present Insight: Good insight present (Psych) Judgement: Good judgement present (Psych) Course Course Level of Care: Express Care Visit Vital Signs Vital signs: Vital Signs Temperature 98.7 F 07/02/24 10:50 Pulse Rate 90 07/02/24 10:50 Respiratory Rate 16 07/02/24 10:50 Blood Pressure 140/75 07/02/24 10:50 Pulse Oximetry 98 07/02/24 10:50 Oxygen Delivery Room Air 07/02/24 10:50 Temperature 98.7 F 07/02/24 10:50 Pulse Rate 90 07/02/24 10:50 Respiratory Rate 16 07/02/24 10:50 Blood Pressure 140/75 07/02/24 10:50 Pulse Oximetry 98 07/02/24 10:50 Oxygen Delivery Room Air 07/02/24 10:50 Reviewed MDM - Extremity (Nontraumatic) MDM Narrative Medical decision making narrative: X-ray shows significant arthritis. Will refer to Ortho, discharge with round of steroids. Discharge instructions reviewed with patient, as well as provided in writing per nursing staff. The instructions also include specific and strict return/GO TO THE ER as well as f/u information. All questions have been answered, and the patient deny any further questions with discharge and discharge plan. Some parts of this dictation were generated by voice recognition software and may contain typographical and/or grammatical inaccuracies. Differential Diagnosis Differential diagnosis: Likely gout Imaging Data My impression: arthritis Radiologist's impression: [facility] [address] [place] [address] XRay Report Signed Patient: Jena Sanchez : 1965 MR#: [id number] Age: 58 Acct:[id number] Loc: [facility] ADM Date: 07/02/24Attending Dr: Ordering Physician: Rissa Chavarria FNP Date of Service: 07/02/24 Procedure(s): XR knee LT min 4V Accession Number(s): [id number] cc: Rissa Chavarria FNP; Moe Dave MD~ HISTORY: pain and swelling left knee no injury. COMPARISON: None TECHNIQUE: 4 views of the left knee were performed FINDINGS: No acute or subacute fracture. Medial tibiofemoral joint space narrowing is identified with osteophyte formation and tibial plateau sclerosis. No suprapatellar joint effusion is identified. The infrapatellar joint space is clear. IMPRESSION: Significant degenerative disease with joint space narrowing and osteophyte formation. No acute fracture. Reviewed, dictated and finalized at location [facility] NURSE Dictated By: Autumn Meadows MD 07/02/24 1154 Signed By: <Electronically signed by Autumn Meadows MD in OV> 07/02/24 1156 Discharge Plan Discharge Clinical Impression: Knee pain Qualifiers: Chronicity: unspecified Laterality: left Qualified Code(s): M25.562 - Pain in left knee Patient Disposition: Home, Self-Care Condition: Stable Instructions: Antibiotic Form, P.R.I.C.E. Treatment (ED) Additional Instructions: Take medications as prescribed. Follow up with Orthopedic. Emergency department for new or worse symptoms Patient Language: Martiniquais Prescriptions: New prednisone 50 mg tablet 50 mg PO DAILY Qty: 5 0RF Follow-up/Referrals: Chacho Doshi MD [Physician] - 1 Week (Left knee pain, see x-ray) Moe Dave MD [Primary Care Provider] - Time of Disposition: 12:13
== END 2024-07-02 12:20 | disposition home or self-care (01) ==
PROVIDERS: Emergency Provider Nurse Practitioner Family; PCP Family Medicine
DX: M25.562 Pain in left knee (principal); F17.210 Nicotine dependence, cigarettes, uncomplicated; M19.90 Unspecified osteoarthritis, unspecified site; E78.2 Mixed hyperlipidemia; Z86.16 Personal history of COVID-19
CPT/HCPCS: 73564; 99213; G0463

== ENCOUNTER 2024-10-11 09:00 | Outpatient (RCR) | payer OTHER, SELFPAY ==
--- NOTE | 2024-08-01 11:35 | OPREHPOC ---
Outpatient Therapy Plan of Care This is a Multidisciplinary Plan of Care that may contain components documented by all disciplines (PT, OT, and ST.) PT Problem 1 PT Problem #1 Knowledge Deficit PT Goal 1 Goal / Goal Update *indep with HEP Target Visit 8 PT Problem 2 PT Problem #2 Pain PT Goal 1 Goal / Goal Update * pt report pain rating L knee of 4/10 at worst Target Visit 8 PT Problem 3 PT Problem #3 Impaired Strength PT Goal 1 Goal / Goal Update increase strength to improve support to knee joint: L hip adduction and extension strength of 4+/5 Target Visit 8 PT Problem 4 PT Problem #4 Impaired Flexibility PT Goal 1 Goal / Goal Update increase L hip& knee flexibility, to improve position of knee joint and symmetry with R LE: 1* anterior hip/quad length with prone knee flexion 125' 2* with supine piriformis stretch, report R/L tightness same Target Visit 8
--- NOTE | 2024-08-01 11:35 | PTOPEVAL1 ---
Assessment and note entered by Annika Alcocer, PT Evaluation Information Assessment Status Evaluation ICD-10 Condition Codes (PT) Pain in left knee M25.562 Other ICD-10 Condition Codes ( OA L knee M17.9 PT) Onset Jun 30, 2024 Subjective Information woke up in AM-L knee popped when getting up; more pain since then, to [facility] on 07-02-24; xray: moderate medial joint narrowing; mild patellofemoral changes had injection at last dr [id number] the pain; do not really do any leg exercises but stretching knee, not sure what to do; Activity: do not use assistive device; indep with all home and self care activity, increase pain L knee; 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 Her history includes 2 L knee arthroscopies, R knee pain and LBP. Self assessment LE functional scale rating of 50% limitation in activity level. Stairs and sit to stand increase knee pain. Sleeping is OK. Xray report states changes in knee. With the evaluation: she has laterally placed patella; decreased flexibility of L quad/anterior hip muscles with weakness of hip extension and adduction muscles; sitting active L knee ROM is WNL, with flexion has popping. Skilled PT services are indicated for modalities PRN for pain control, therapeutic exercises and education for HEP and self management of knee pain . Plan of Care Interventions Electrical Stimulation,Hot Pack/Cold Pack,Manual Therapy,Neuro Re-education,Patient/Caregiver Education,Therapeutic Activities,Therapeutic Exercise,Ultrasound,Other Other Interventions taping PT Services Indicated Yes Treatment Frequency and 1-2x/wk for 8 visits Duration These treatments will address the objective and functional deficits as defined above. The patient will be advanced safely and appropriately in order for the patient to progress towards his/her prior level of function. Additional exercises will be introduced and as well as a comprehensive home exercise program upon discharge, if needed, ?to ensure carryover of functional gains achieved in the clinic. This treatment plan has been reviewed and agreement upon by the patient.
--- NOTE | 2024-08-16 09:12 | PCPTNOTE ---
Patient caneled due to illness.
--- NOTE | 2024-08-30 08:47 | PCPTNOTE ---
Pt canceled due to illness.
--- NOTE | 2024-10-11 09:52 | PTOPDC ---
Assessment and note entered by Annika Alcocer, PT Assessment Status Discharge ICD-10 Condition Codes (PT) Pain in left knee M25.562 Other ICD-10 Condition Codes ( OA L knee M17.9 PT) Onset Jun 30, 2024 Subjective Information doing much better, no problems going up/down stairs; doing the exercises; walking more, able to go to the mall with her family and walking more is better about doing something and then sitting a few minutes to rest, then back to standing again; feel like ready to be finished with therapy. Reported Pain Level Pain Score Self Report Additional Pain Score Comments pain range in the past week 1-4/10 increase pain: standing and walking more decrease pain: ice once in awhile - not used past few weeks is no longer taking any over the counter meds sit to stand is usually OK, except end of the day when overall tired and more sore Assessment PT Clinical Summary Jena has received 7 PT sessions. She called and canceled 2 appointments. Today: reports pain range of 1-4/10; LE functional self rating of 6% limitation in activity level; 4+/5 strength of L hip and knee; continues to have tenderness and spasms over L ITB, but is less; continues to have tightness over L piriformis and anterior hip/quad muscles; education completed for HEP. The goals were met, except anterior hip/quad flexibility. Discharge PT. She is to continue with her HEP and monitor activity/rest balance to manage her knee pain. Plan of Care PT Services Indicated No
== END 2024-10-11 11:31 | disposition home or self-care (01) ==
LOC: ANHPT 09:00
PROVIDERS: PCP Family Medicine; Visit Provider Physician Assistant Surgical
DX: M17.11 Unilateral primary osteoarthritis, right knee (principal)
CPT/HCPCS: 97110; 97140; 97161; 97530